=== PATIENT | female | born 1935 | race Caucasian/White ===

== ENCOUNTER 2019-04-20 14:05 | Outpatient (CLI) | payer MEDICARE, MEDICAID, SELFPAY ==
--- NOTE | 2019-04-20 14:15 | USCV_ITS ---
Virginie Dawkins Age: 83 Gender: F : 1935 Exam Date: 04/20/2019 14:42 Ordering Phys: Kiley Chance MD ([email or web address]) Technologist: ALEXANDR PERKINS [place] [facility] [place]: PERICARDIAL EFFUSION BP: / HR: 71 Rhythm: Sinus Technical Quality: Good MEASUREMENTS (Male / Female) Normal Values 2D ECHO LV Diastolic Diameter PLAX 4.3 cm 4.2 - 5.9 / 3.9 - 5.3 cm LV Systolic Diameter PLAX 2.8 cm IVS Diastolic Thickness 0.9 cm 0.6 - 1.0 / 0.6 - 0.9 cm IVS Systolic Thickness 1.5 cm LVPW Diastolic Thickness 0.9 cm 0.6 - 1.0 / 0.6 - 0.9 cm LVPW Systolic Thickness 1.3 cm LV Ejection Fraction 2D Teich 64.9 % LV Ejection Fraction MOD 2C 62.6 % LV Ejection Fraction 2C AL 65.3 % LA Diameter 3.3 cm LA Width 3.7 cm LA Height 6.4 cm RA Width 4.5 cm RA Height 5.1 cm Aorta at Sinotubular Diameter 2.3 cm M-MODE LV Diastolic Diameter MM 4.4 cm 4.2 - 5.9 / 3.9 - 5.3 cm LV Systolic Diameter MM 2.8 cm LV Ejection Fraction MM Teich 65.8 % IVS Diastolic Thickness MM 1.0 cm 0.6 - 1.0 / 0.6 - 0.9 cm IVS Systolic Thickness MM 1.4 cm LVPW Diastolic Thickness MM 1.2 cm 0.6 - 1.0 / 0.6 - 0.9 cm LVPW Systolic Thickness MM 1.6 cm Aortic Annulus Diameter 2.8 cm LA Ao Ratio MM 1.2 MV E Point Septal Separation 0.4 cm FINDINGS Left Ventricle Normal left ventricular size and systolic function, EF 65 %. No regional wall motion abnormalities. Mild left ventricular hypertrophy. Right Ventricle Normal right ventricular size and systolic function. No diastolic collapse. No paradoxical motion of the septum Right Atrium Mildly increased right atrial size. No evidence of any collapse of the atrial wall Left Atrium Mildly increased left atrial size. Mitral Valve No gross abnormalities noted Aortic Valve Thickened aortic valve. Tricuspid Valve No gross abnormalities noted Pulmonic Valve Structurally normal pulmonic valve. Pericardium Moderate pericardial effusion. Aorta Normal aortic annulus size. CONCLUSIONS Features to moderate pericardial effusion with no significant change, compared to the study from 01/20/2019 Normal left ventricular size and systolic function, EF 65 %. No regional wall motion abnormalities. Mild left ventricular hypertrophy. Mild biatrial enlargement Thickened aortic valve. There are no intracardiac masses. Dr Kiley Chance MD FACC (Electronically Signed) Final Date: 23 April 2019 14:40 S
== END 2019-04-20 14:06 | disposition home or self-care (01) ==
LOC: US 14:06
PROVIDERS: Family Provider Family Medicine; PCP Family Medicine; Visit Provider Internal Medicine Cardiovascular Disease
DX: I31.3 Pericardial effusion (noninflammatory) (principal); I35.8 Other nonrheumatic aortic valve disorders
CPT/HCPCS: 93308

== ENCOUNTER → 2020-03-17 09:41 | Outpatient (BNVA) | payer MEDICARE, MEDICAID, SELFPAY | PROVIDERS: Family Provider Family Medicine; PCP Family Medicine; Visit Provider Nurse Practitioner Family | DX: N39.0 Urinary tract infection, site not specified (principal) | CPT/HCPCS: 81003 ==

== ENCOUNTER → 2020-06-16 12:55 | Outpatient (BNVA) | payer MEDICARE, MEDICAID, SELFPAY | PROVIDERS: Family Provider Family Medicine; PCP Nurse Practitioner Family; Visit Provider Nurse Practitioner Family | DX: N39.0 Urinary tract infection, site not specified (principal); R03.0 Elevated blood-pressure reading, without diagnosis of hypertension | CPT/HCPCS: 81003 ==

== ENCOUNTER 2020-06-18 15:43 | Emergency (ER) | payer MEDICARE, MEDICAID, SELFPAY ==
[2020-06-18] VITALS (10 sets, daily range): BP systolic 145–201; BP diastolic 62–97; PULSE 73–94; RESP 18–22; TEMP 36.1; O2SAT 93–96; BMI 23.6
--- NOTE | 2020-06-18 16:20 | XRR_ITS ---
PROCEDURE INFORMATION: Exam: XR Chest Exam date and time: 06/18/2020 4:40 PM Age: 85 years old Clinical indication: Shortness of breath; Additional info: Reduced breath sounds TECHNIQUE: Imaging protocol: XR of the chest. Views: 1 view. COMPARISON: CR Chest 1 [place] [id number] 01/19/2019 7:12 PM FINDINGS: Lungs: Well inflated . No focal consolidation. Trace scarring. Pleural spaces: Unremarkable. No pleural effusion. No pneumothorax. Heart/Mediastinum: The cardiac shadow is moderately enlarged. Aortic calcifications. Similar appearance to the prior exam. Bones/joints: No acute abnormality. XR/XR chest 1V portable [id number] IMPRESSION: No acute findings.
--- NOTE | 2020-06-18 16:20 | CTR_ITS ---
PROCEDURE INFORMATION: Exam: CT Head Without Contrast Exam date and time: 06/18/2020 4:30 PM Age: 85 years old Clinical indication: Altered mental status/memory loss; Additional info: Symptoms of acute stroke TECHNIQUE: Imaging protocol: Computed tomography of the head without contrast. Radiation optimization: All CT scans at this facility use at least one of these dose optimization techniques: automated exposure control; mA and/or kV adjustment per patient size (includes targeted exams where dose is matched to clinical indication); or iterative reconstruction. COMPARISON: No relevant prior studies available. RADIATION DOSE METRICS: Total DLP (mGy-cm): 830.3 FINDINGS: Brain: No evidence of acute infarct. No mass or mass effect. No intra axial hemorrhage. No extra axial fluid collection or hemorrhage. Scattered white matter hypodensities likely from chronic microvascular ischemic disease. Global brain volume loss, likely age related. Cerebral ventricles: Symmetric and without enlargement. Bones/joints: No acute fracture. Paranasal sinuses: Visualized sinuses are well aerated. Mastoid air cells: Visualized mastoid air cells are well aerated. Soft tissues: No concerning abnormalities. CT/CT head wo con* [id number] IMPRESSION: No acute intracranial abnormality. Radiation Dose CTDIVOL = (mGy): DLP = 830.3 (mGy-cm)
--- NOTE | 2020-06-18 16:22 | ECG_ITS ---
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: : 1935 Requested By: Prabhakar Tao Order Number: [id number] Reading MD: ARTEM ESPINOSA Measurements Intervals [place] Rate: 72 P: 68 W[place]: 166 QRS: -16 QRSD: 78 T: -5 QT: 418 QTc: 460 Interpretive Statements SINUS RHYTHM WITH OCCASIONAL VENTRICULAR PREMATURE COMPLEXES Compared to ECG 01/20/2019 03:29:24 ST (T wave) deviation now present Myocardial infarct finding no longer present Electronically Signed On 06-18-2020 20:18:21 CDT by ARTEM ESPINOSA [email or web address] hospitalHandshakeclevel[facility].[employer]/store/[id number]
[2020-06-18 17:06] LABS: Glucose Point of Care 97 mg/dL (70-110)
[2020-06-18 17:16] LABS: Basophils % 0.4 %; Eosinophils % 0.5 %; Hematocrit 46.3 % (37.0-47.0); Hemoglobin 15.3 g/dL (11.5-15.3); Lymphocytes % 38.8 %; Mean Corpuscular Hemoglobin 31.2 pg (28.0-34.0); Mean Corpuscular Volume 94.3 fL (81-99); Mean Platelet Volume 8.8 fL (7.4-10.4); Monocytes # 0.7 10^3/uL (0.2-0.9); Monocytes % 8.7 %; Neutrophils # 3.97 10^3/uL (1.8-7.7); Neutrophils % 51.5 %; Nucleated Red Blood Cells % 0 %; Platelet Count 275 10^3/cmm (130-400); Red Blood Count 4.91 10^6/uL (4.1-5.3); Red Cell Distribution Width 13.4 % (12.1-15.1); White Blood Count 7.7 10^3/uL (4.0-10.0)
[2020-06-18] MEDS: hyDRALAzine 20 mg/mL INJ 1 mL 10 MG IVP ×2 (17:20→21:57)
[2020-06-18 17:31] LABS: INR 1.03 (0.8-1.2)
[2020-06-18 17:31] LABS: Add Urine Microscopic? NO; Charge for UA Resulting for Rev
[2020-06-18 17:32] LABS: Partial Thromboplastin Time 28.6 SECONDS (23.9-36.7)
[2020-06-18 17:38] LABS: Troponin(5th) Baseline 9 ng/L (0-10)
[2020-06-18 17:45] LABS: Alanine Aminotransferase 15 U/L (0-33); Albumin Level 4.4 g/dL (3.5-5.2); Alkaline Phosphatase 75 IU/L (35-105); Anion Gap 12.8 (5-19); Aspartate Amino Transferase 21 U/L (0-32); Blood Urea Nitrogen 14 mg/dL (8-23); Calcium 9.6 mg/dL (8.5-10.5); Carbon Dioxide 31 mmol/L (22-29); Chloride 101 mmol/L (98-107); Globulin 2.7 g/dL (1.3-4.6); Glucose 102 mg/dL (65-115); NT Pro B Type Natriuretic Pept 670 pg/mL (0-450); Osmolality Calculated 293 mOsm/kg (285-295); Potassium 3.8 mmol/L (3.5-5.1); Sodium 141 mmol/L (136-145); Total Bilirubin 0.3 mg/dL (0.15-1.2); Total Protein 7.1 g/dL (6.6-8.7)
[2020-06-18 18:08] LABS: Bilirubin Urine Neg (Negative); Blood Urine Neg (Negative); Glucose Urine UA Norm (Normal); Ketones Urine Negative (Negative); Leukocyte Esterase Urine Negative (Negative); Nitrate Urine Negative (Negative); Protein Urine Neg (Negative); Urine Appearance Clear (CLEAR); Urine Color Yellow (Yellow); Urobilinogen Urine Norm (Negative); pH Urine 5 (5-7)
--- NOTE | 2020-06-18 18:22 | ECG_ITS ---
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: : 1935 Requested By: Prabhakar Tao Order Number: [id number] Girish MD: ARTEM ESPINOSA Measurements Intervals [place] Rate: 73 P: 68 DC: 153 QRS: -17 QRSD: 85 T: 2 QT: 397 QTc: 438 Interpretive Statements SINUS RHYTHM NONSPECIFIC ST & T-WAVE ABNORMALITY Compared to ECG 06/18/2020 16:58:27 T-wave abnormality now present Ventricular premature complex(es) no longer present ST (T wave) deviation no longer present Electronically Signed On 06-18-2020 20:25:23 CDT by ARTEM ESPINOSA [email or web address]/[id number]
[2020-06-18 18:47] LABS: Erythrocyte Sedimentation Rate 11 mm/hr (0-15)
--- NOTE | 2020-06-18 19:40 | PM.HP ---
Providers/Chief Complaint Primary Care Provider: IRLANDA Hamilton Chief Complaint: Hig BP History of Present Illness Virginie Dawkins is a 85 year old female who presented today with chief complaint of dizziness, lethargy, difficult to control blood pressure. Patient is stating that 10 days ago she started noticing left eyelid drooping, she did not pay much attention until her daughter mentioned she did not experience any slurred speech, dysphagia, drooling of saliva, facial asymmetry, motor weakness, falls, palpitations, chest pain, she has been feeling shortness of breath on moderate physical exertion. She also followed up with her manager dental today for macular degeneration. She is denying aspiration, fatigue during chewing on food, tenderness around temporal scalp area, endorsing double vision, diplopia, floaters. No previous history of [place], TIA, stroke. In last 10 days her blood pressure has been consistently between 1 60-1 80s, at baseline her systolic blood pressure would stay 160 mmHg, recently her doctor Dr. Juan started her on amlodipine 5 mg and her first dose was yesterday. Previously she was on Lasix for congestive heart failure but did not take it on regular basis. Her case was discussed with neurologist at [facility] who recommended MRI CT head is unremarkable I did CTA head and neck which showed atherosclerotic plaque bilateral carotid stenosis, she has mild left eyelid droop. Her face skin is flushed. NIH score 0, patient is claustrophobic and does not want to get MRI however because of hypertensive urgency she is currently being observed overnight, she is also endorsing history of irregular heart rhythm never required any anticoagulation current EKG x2 showing sinus rhythm with PVCs, will monitor overnight on telemetry, will add 3 antihypertensives, she is allergic to aspirin would use Plavix. Review of Systems Const: Reports: chills, body aches and fatigue; Denies: fever(s) Eyes: Reports: floaters, seeing flashes and other; Denies: change in vision ENMT: Denies: throat pain Card: Reports: dyspnea on exertion; Denies: chest pain, swelling of feet/ankles or orthopnea Resp: Reports: dyspnea; Denies: productive cough or non-productive cough GI: Denies: abdominal pain : Denies: flank pain Musc: Denies: neck pain Skin/Breast: Reports: other (Facial flushing); Denies: rash Neuro: Denies: headache(s) Psych: Reports: anxiety Endo: Denies: polyuria Darrion/Lymph: Denies: easy bruising All/Imm: Denies: urticaria Medications/Allergies Home Medications Medication Instructions Recorded Confirmed Last Taken Type ascorbic acid (vitamin C) 1,000 mg 1 gm PO BID tab 03/15/19 06/18/20 06/18/20 History tablet cetirizine 10 mg capsule 10 mg PO DAILY cap 03/15/19 06/18/20 06/18/20 History cholecalciferol (vitamin D3) 25 1,000 unit PO DAILY 03/15/19 06/18/20 06/17/20 History mcg (1,000 unit) capsule lactobacillus combination no.9 4 4,000 mmu cells PO DAILY 03/15/19 06/18/20 06/18/20 History billion cell capsule methenamine hippurate 1 gram tablet 1 g PO BID #60 tab 06/16/20 06/18/20 06/18/20 Rx PreserVision AREDS 1 tab PO DAILY 06/18/20 06/18/20 06/18/20 History amlodipine 5 mg PO DAILY 06/18/20 06/18/20 06/18/20 History Allergies Allergy/AdvReac Type Severity Reaction Status Date / Time sulfacetamide Allergy Severe ADR-Chest Verified 06/18/20 16:00 Pain aspirin [From Li PM] Allergy Unknown Unknown Verified 06/18/20 16:00 lisinopril Allergy Unknown Unknown Verified 06/18/20 16:00 metoprolol Allergy Unknown Unknown Verified 06/18/20 16:00 PFSH Acute PFSH: Medical History Acute sinusitis Allergic rhinitis Atypical chest pain The pain is very atypical. Most likely this is musculoskeletal in origin. She has no evidence of ischemia, based on the perfusion scan. Benign essential HTN Bilateral shoulder pain Bronchitis C. difficile colitis COPD (chronic obstructive pulmonary disease) (~04/10/19) Diastolic heart failure Most likely the blood pressure is causing the diastolic heart failure. Currently the blood pressure is a stage II. The antihypertensive medications need to be optimized. Dysuria Essential (primary) hypertension Mediastinal lymphadenopathy Palpitations Pericardial effusion Pharyngitis Rectal prolapse Recurrent UTI Unspecified diastolic (congestive) heart failure Surgical History History of appendectomy History of colon resection Family History Mother , Age 79 Stroke Father , Age 86 Stroke Diabetes Family/Other Cancer Social History Smoking and tobacco status: former smoker Quit status (tobacco): has quit using tobacco Year quit tobacco: 1994 - 2PPD x 40 Years Second hand smoke exposure: No Alcohol intake: never Lives independently: Yes Marital status: Current occupational status: retired History of recent travel: No Current gender identity: Female Vitals/I&O/Wt Last Vital Signs Temp 96.9 F L 06/18/20 15:54 Pulse 73 06/18/20 18:49 Resp 18 06/18/20 18:49 BP 163/79 06/18/20 18:49 Pulse Ox 95 06/18/20 18:49 Weight last 48 hrs Weight 60.328 kg Data : 06/18/20 17:01 06/18/20 17:01 Coding Level of Care Code Acute Merchandise Support Associate for Janki Covington
--- NOTE | 2020-06-18 19:44 | CTR_ITS ---
PROCEDURE INFORMATION: Exam: CT Angiography Head With Contrast Exam date and time: 06/18/2020 7:49 PM Age: 85 years old Clinical indication: Other: Eye lid droop TECHNIQUE: Imaging protocol: Computed tomography angiography of the head with intravenous contrast. 3D rendering (Not supervised by radiologist): MIP and/or 3D reconstructed images were created by the technologist. Radiation optimization: All CT scans at this facility use at least one of these dose optimization techniques: automated exposure control; mA and/or kV adjustment per patient size (includes targeted exams where dose is matched to clinical indication); or iterative reconstruction. Contrast material: OMNI 350; Contrast volume: 95 ml; Contrast route: INTRAVENOUS (IV); COMPARISON: CT head wo con* [id number] 06/18/2020 4:54 PM RADIATION DOSE METRICS: Total DLP (mGy-cm): 1598.58 FINDINGS: ANTERIOR CIRCULATION: Right internal carotid artery: See Left internal carotid artery finding. Right middle cerebral artery: Unremarkable. No occlusion or significant stenosis. No aneurysm. Right anterior cerebral artery: Unremarkable. No occlusion or significant stenosis. No aneurysm. 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 Aneurysm neck about 3.8 mm. Mild atherosclerotic wall plaques in the cavernous segment of the left ICA with mild stenosis less than 50%. [place] moderate linear calcified atherosclerotic plaque volume in the cavernous segment of the right ICA with mild stenosis less than 50%. Left middle cerebral artery: Unremarkable. No occlusion or significant stenosis. No aneurysm. Left anterior cerebral artery: Unremarkable. No occlusion or significant stenosis. No aneurysm. POSTERIOR CIRCULATION: Right vertebral artery: Unremarkable. No occlusion or significant stenosis. No aneurysm. Left vertebral artery: Unremarkable. No occlusion or significant stenosis. No aneurysm. Basilar artery: Unremarkable. No occlusion or significant stenosis. No aneurysm. Right posterior cerebral artery: Unremarkable. No occlusion or significant stenosis. No aneurysm. Left posterior cerebral artery: Unremarkable. No occlusion or significant stenosis. No aneurysm. Brain: No definite mass, mass effect, or midline shift. Cerebral ventricles: No ventriculomegaly. Bones/joints: Unremarkable. No acute fracture. Soft tissues: Unremarkable. 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 PROCEDURE INFORMATION: Exam: CT Angiography Neck With Contrast Exam date and time: 06/18/2020 7:49 PM Age: 85 years old Clinical indication: Other: Eye lid droop TECHNIQUE: Imaging protocol: Computed tomography angiography of the neck with intravenous contrast. 3D rendering (Not supervised by radiologist): MIP and/or 3D reconstructed images were created by the technologist. Radiation optimization: All CT scans at this facility use at least one of these dose optimization techniques: automated exposure control; mA and/or kV adjustment per patient size (includes targeted exams where dose is matched to clinical indication); or iterative reconstruction. Contrast material: OMNI 350; Contrast volume: 95 ml; Contrast route: INTRAVENOUS (IV); COMPARISON: CT head wo con* [id number] 06/18/2020 4:54 PM RADIATION DOSE METRICS: Total DLP (mGy-cm): 1598.58 FINDINGS: Right common carotid artery: No stenosis. No dissection or occlusion. Right internal carotid artery: Small volume calcified and noncalcified atherosclerotic plaque proximal right ICA with minimal stenosis significantly less than 50%. Right external carotid artery: No occlusion or stenosis of the origin. Right vertebral artery: No stenosis. No dissection or occlusion. Left common carotid artery: No stenosis. No dissection or occlusion. Left internal carotid artery: Moderate atherosclerotic plaque volume proximal left ICA with mild stenosis less than 50%. Left external carotid artery: No occlusion or stenosis of the origin. Left vertebral artery: No stenosis. No dissection or occlusion. Bones/joints: No cervical spine fractures. Reversal of curvature. Severe disc disease C5-C6 and C6-C7. Soft tissues: Normal. No significant soft tissue swelling. Lungs: Severe emphysema. CT/CT angio headneck* [id number] IMPRESSION: Less than 50% stenosis bilateral carotid arteries. REFERENCES: NASCET CRITERIA. The degree of internal carotid artery stenosis is based on NASCET criteria. Normal is no stenosis. Mild is less than 50% stenosis. Moderate is 50-69% stenosis. Severe is 70% to 99% stenosis. Total occlusion is no detectable patent lumen. Radiation Dose CTDIVOL = (mGy): DLP = 1598.58~1598.58 (mGy-cm)
[2020-06-18 19:55] LABS: Troponin 5 2HR 9.32 ng/L (0-10); Troponin 5 2HR Delta 0.32 ABS# (0-10)
--- NOTE | 2020-06-18 20:02 | ED_ITS ---
HPI - General Adult General: Chief complaint: General Medical Stated complaint: Hig BP Time Seen by Provider: 06/18/20 16:01 History of Present Illness: HPI narrative: The patient is an 85-year-old female who comes to the ER after she was told to for elevated systolic blood pressure of 200. She visited her primary approximately 4 days ago and was started on amlodipine for a similar pressure. On arrival to the ER she has a systolic of 200 as well and a left eye ptosis. She says 10 days ago she woke up and noticed her left eye was drooping, began to have double vision, feels generally weak, and slightly short of breath. She has never had symptoms like these before until 10 days ago. Her blood pressure she says is up-and-down and it has been elevated in the past requiring medications and sometimes it is low however presently it is elevated. She also says she has white coat syndrome and gets very elevated blood pressure because she is anxious and afraid of healthcare people Location: face Severity: moderate Associated symptoms: Reports short of breath; Deny chest pain, confusion, dyspnea, headache(s), rash or palpitations Review of Systems General: Reports: 10 or more systems reviewed and unremarkable except in HPI and below Const: Denies: fatigue Eyes: Denies: change in vision, blurry vision or eye redness ENMT: Denies: throat pain, swelling of lips/tongue, ear or mastoid pain or nasal congestion Card: Denies: chest pain, palpitations, irregular heart rhythm, edema, dyspnea on exertion or orthopnea Resp: Denies: dyspnea, productive cough or non-productive cough GI: Denies: abdominal pain, diarrhea or GI cramping : Denies: flank pain, difficulty voiding, urinary frequency or urinary urgency Musc: Denies: neck pain, back pain, extremity pain, joint pain, joint redness, limited range of motion or muscle weakness Skin/Breast: Denies: rash, pruritus, erythema, skin pain or skin tenderness Neuro: Denies: headache(s), numbness in extremities, weakness in extremities, sensory changes, difficulty walking, dizziness, confusion or Slurred speech present Psych: Denies: anxiety or depression Endo: Denies: polyuria All/Imm: Denies: urticaria, throat swelling or tongue swelling PFS ED PFSH: Medical History (Updated 06/18/20 @ 20:12 by Prabhakar Tao MD) Acute sinusitis Allergic rhinitis Atypical chest pain The pain is very atypical. Most likely this is musculoskeletal in origin. She has no evidence of ischemia, based on the perfusion scan. Benign essential HTN Bilateral shoulder pain Bronchitis C. difficile colitis COPD (chronic obstructive pulmonary disease) (~04/10/19) Diastolic heart failure Most likely the blood pressure is causing the diastolic heart failure. Currently the blood pressure is a stage II. The antihypertensive medications need to be optimized. Dysuria Essential (primary) hypertension Mediastinal lymphadenopathy Palpitations Pericardial effusion Pharyngitis Rectal prolapse Recurrent UTI Unspecified diastolic (congestive) heart failure Surgical History History of appendectomy History of colon resection Family History Mother , Age 79 Stroke Father , Age 86 Stroke Diabetes Family/Other Cancer Social History Smoking and tobacco status: former smoker Quit status (tobacco): has quit using tobacco Year quit tobacco: 1994 - PD x 40 Years Second hand smoke exposure: No Alcohol intake: never Lives independently: Yes Marital status: Current occupational status: retired History of recent travel: No Current gender identity: Female Physical Exam Const: COMMON NORMALS: no acute distress, average body habitus, patient oriented x3, no limitations, healthy appearing, alert and well nourished GENERAL APPEARANCE: cooperative, comfortable, well kempt and well developed ORIENTATION/CONSCIOUSNESS: Yes awake, Yes oriented to person, Yes oriented to place and Yes oriented to time HENMT: COMMON NORMALS: normocephalic, external ears normal and Normal external nose present HEAD & SCALP: normal to inspection and normocephalic NOSE: Normal external nose present EXTERNAL EAR: Yes external ears normal MOUTH: Normal oral and palatal mucosa present THROAT: posterior oropharynx normal Eye: COMMON NORMALS: Equal, round and reactive pupils present and EOMs intact bilaterally GENERAL EYE: appearance normal, both eyes and all related structures PUPIL: Yes Equal, round and reactive pupils present OTHER: She has a slight ptosis on the left eye. Full strength of all her muscles she is able to close both eyes. The patient is able to track my finger with during the H test. She does have horizontal nystagmus with lateral gaze bilaterally. Her visual acuity is normal she is able to read fine print however she does complain of double vision at times. Neck/C-Spine: COMMON NORMALS: full ROM, no lymphadenopathy, no meningeal signs and no JVD GENERAL: Yes normal visual inspection Lymph: LYMPHATIC: no lymphadenopathy noted Chest: COMMONS NORMALS: normal inspection of the chest and normal palpation of entire chest wall Resp: COMMON NORMALS: normal respiratory effort, No retractions, No use of accessory muscles, clear to auscultation bilaterally and percussion normal EFFORT & INSPECTION: Yes able to speak in complete sentences AUSCULTATION: clear to auscultation bilaterally PERCUSSION: percussion normal Cardio: COMMON NORMALS: no JVD, regular rate, S1 normal heart sound present, S2 normal heart sound present and Peripheral pulses 2+ throughout RATE: regular rate RHYTHM: abnormal rhythm and other (She has some PVCs in her strip. She says this is normal for her.) HEART SOUNDS: S1 normal heart sound present and S2 normal heart sound present PERIPHERAL PULSES: Peripheral pulses 2+ throughout GI: COMMON NORMALS: Normal to inspection, nondistended, normoactive bowel sounds present, Soft to palpation, non-tender and no masses INSPECTION: Yes normal to inspection PALPATION: Yes Soft to palpation : COMMON NORMALS: Yes no CVA tenderness BLADDER/KIDNEY EXAM: Yes no CVA tenderness Back/Pelvis: COMMON NORMALS: no CVA tenderness, thoracic and lumbar spine normal to inspection, no thoracic nor lumbar tenderness and thoraco-lumbar ROM normal Extremity: COMMON NORMALS: normal to inspection, full ROM, capillary refill normal, no joint enlargement and no pedal edema GENERAL: Yes normal exam except as noted Neuro: COMMON NORMALS: patient oriented x3, CN's II-XII intact bilaterally, moves all extremities, no focal motor deficits, no sensory deficits noted and gait normal SENSORIUM/ORIENTATION: Yes alert, Yes oriented to person, Yes oriented to place and Yes oriented to time MENINGEAL SIGNS: Yes no meningeal signs Psych: COMMON NORMALS: mental status grossly normal, Normal thought process present, cooperative, normal affect and speech normal APPEARANCE: Yes well kempt ATTITUDE: Yes calm SPEECH: Yes normal speech THOUGHT PROCESS: Normal thought process present Skin: COMMON NORMALS: no rashes or lesions noted GENERAL SKIN EXAM: no rashes or lesions noted Course Vital Signs: Vital signs: Vital Signs Temperature 96.9 F L 06/18/20 15:54 Pulse Rate 73 06/18/20 18:49 Respiratory Rate 18 06/18/20 18:49 Blood Pressure 163/79 06/18/20 18:49 Pulse Oximetry 95 06/18/20 18:49 MDM - General Adult MDM Narrative: Medical decision making narrative: The patient came to the ER for hypertension. She was given 10 mg of hydralazine with good improvement of her systolic blood pressure down to the 160s. She also has white coat syndrome. Separately it seems she has been suffering from some neurologic condition which is unclear. She has a left eye ptosis for the past 10 days and has had some shortness of breath, generalized weakness, and double vision. The symptoms are unclear and I discussed with [facility] neurology who recommended admitting for an MRI of the brain. The patient has been stable in the ER. Discussed with Dr. Carranza who accepts for observation. Lab Data: Labs: Lab Results 06/18/20 06/18/20 06/18/20 Range/Units 17:00 17:01 17:01 WBC 7.7 (4.0-10.0) 10^3/ uL RBC 4.91 (4.1-5.3) 10^6/u L Hgb 15.3 (11.5-15.3) g/dL Hct 46.3 (37.0-47.0) % MCV 94.3 (81-99) fL MCH 31.2 (28.0-34.0) pg MCHC 33.0 (30.0-36.0) g/dL RDW 13.4 (12.1-15.1) % Plt Count 275 (130-400) 10^3/c mm MPV 8.8 (7.4-10.4) fL Neut % (Auto) 51.5 % Lymph % (Auto) 38.8 % [place] % (Auto) 8.7 % Eos % (Auto) 0.5 % Baso % (Auto) 0.4 % Neut # (Auto) 3.97 (1.8-7.7) 10^3/u L Lymph # (Auto) 3.0 (0.8-4.8) 10^3/u L [place] # (Auto) 0.7 (0.2-0.9) 10^3/u L Eos # (Auto) 0.0 (0.0-0.8) 10^3/u L Baso # (Auto) 0.0 (0.0-0.1) 10^3/u L Nucleated RBC % (a uto) 0 % Nucleated RBCs # 0.0 /100WBC ESR (0-15) mm/hr PT 13.80 (12.1-14.9) SECO NDS INR 1.03 (0.8-1.2) APTT 28.6 (23.9-36.7) SECO NDS Sodium (136-145) mmol/L Potassium (3.5-5.1) mmol/L Chloride (98-107) mmol/L Carbon Dioxide (22-29) mmol/L Anion Gap (5-19) BUN (8-23) mg/dL Creatinine (0.5-0.9) mg/dL GFR Calculation Glucose (65-115) mg/dL POC Glucose 97 (70-110) mg/dL Calculated Osmolal ity (285-295) mOsm/k g Calcium (8.5-10.5) mg/dL Total Bilirubin (0.15-1.2) mg/dL AST (0-32) U/L ALT (0-33) U/L Alkaline Phosphata se (35-105) IU/L Troponin T Baselin e (0-10) ng/L Troponin T 120 Min [place] (0-10) ng/L Delta Troponin T (0-10) ABS# NT-Pro-B Natriuret Pep (0-450) pg/mL Total Protein (6.6-8.7) g/dL Albumin (3.5-5.2) g/dL Globulin (1.3-4.6) g/dL Urine Color (Yellow) Urine Appearance (CLEAR) Urine pH (5-7) Ur Specific Gravit y (1.005-1.030) Urine Protein (Negative) Urine Glucose (UA) (Normal) Urine Ketones (Negative) Urine Blood (Negative) Urine Nitrate (Negative) Urine Bilirubin (Negative) Urine Urobilinogen (Negative) mg/dL Ur Leukocyte Trisha ase (Negative) 06/18/20 06/18/20 06/18/20 Range/Units 17:01 17:01 17:01 WBC (4.0-10.0) 10^3/ uL RBC (4.1-5.3) 10^6/u L Hgb (11.5-15.3) g/dL Hct (37.0-47.0) % MCV (81-99) fL MCH (28.0-34.0) pg MCHC (30.0-36.0) g/dL RDW (12.1-15.1) % Plt Count (130-400) 10^3/c mm MPV (7.4-10.4) fL Neut % (Auto) % Lymph % (Auto) % [place] % (Auto) % Eos % (Auto) % Baso % (Auto) % Neut # (Auto) (1.8-7.7) 10^3/u L Lymph # (Auto) (0.8-4.8) 10^3/u L [place] # (Auto) (0.2-0.9) 10^3/u L Eos # (Auto) (0.0-0.8) 10^3/u L Baso # (Auto) (0.0-0.1) 10^3/u L Nucleated RBC % (a uto) % Nucleated RBCs # /100WBC ESR 11 (0-15) mm/hr PT (12.1-14.9) SECO NDS INR (0.8-1.2) APTT (23.9-36.7) SECO NDS Sodium 141 (136-145) mmol/L Potassium 3.8 (3.5-5.1) mmol/L Chloride 101 (98-107) mmol/L Carbon Dioxide 31 H (22-29) mmol/L Anion Gap 12.8 (5-19) BUN 14 (8-23) mg/dL Creatinine 0.4 L (0.5-0.9) mg/dL GFR Calculation Not Reportable Glucose 102 (65-115) mg/dL POC Glucose (70-110) mg/dL Calculated Osmolal ity 293 (285-295) mOsm/k g Calcium 9.6 (8.5-10.5) mg/dL Total Bilirubin 0.3 (0.15-1.2) mg/dL AST 21 (0-32) U/L ALT 15 (0-33) U/L Alkaline Phosphata se 75 (35-105) IU/L Troponin T Baselin e 9 (0-10) ng/L Troponin T 120 Min [place] (0-10) ng/L Delta Troponin T (0-10) ABS# NT-Pro-B Natriuret Pep 670 H (0-450) pg/mL Total Protein 7.1 (6.6-8.7) g/dL Albumin 4.4 (3.5-5.2) g/dL Globulin 2.7 (1.3-4.6) g/dL Urine Color (Yellow) Urine Appearance (CLEAR) Urine pH (5-7) Ur Specific Gravit y (1.005-1.030) Urine Protein (Negative) Urine Glucose (UA) (Normal) Urine Ketones (Negative) Urine Blood (Negative) Urine Nitrate (Negative) Urine Bilirubin (Negative) Urine Urobilinogen (Negative) mg/dL Ur Leukocyte Trisha ase (Negative) 06/18/20 06/18/20 Range/Units 17:21 19:03 WBC (4.0-10.0) 10^3/ uL RBC (4.1-5.3) 10^6/u L Hgb (11.5-15.3) g/dL Hct (37.0-47.0) % MCV (81-99) fL MCH (28.0-34.0) pg MCHC (30.0-36.0) g/dL RDW (12.1-15.1) % Plt Count (130-400) 10^3/c mm MPV (7.4-10.4) fL Neut % (Auto) % Lymph % (Auto) % [place] % (Auto) % Eos % (Auto) % Baso % (Auto) % Neut # (Auto) (1.8-7.7) 10^3/u L Lymph # (Auto) (0.8-4.8) 10^3/u L [place] # (Auto) (0.2-0.9) 10^3/u L Eos # (Auto) (0.0-0.8) 10^3/u L Baso # (Auto) (0.0-0.1) 10^3/u L Nucleated RBC % (a uto) % Nucleated RBCs # /100WBC ESR (0-15) mm/hr PT (12.1-14.9) SECO NDS INR (0.8-1.2) APTT (23.9-36.7) SECO NDS Sodium (136-145) mmol/L Potassium (3.5-5.1) mmol/L Chloride (98-107) mmol/L Carbon Dioxide (22-29) mmol/L Anion Gap (5-19) BUN (8-23) mg/dL Creatinine (0.5-0.9) mg/dL GFR Calculation Glucose (65-115) mg/dL POC Glucose (70-110) mg/dL Calculated Osmolal ity (285-295) mOsm/k g Calcium (8.5-10.5) mg/dL Total Bilirubin (0.15-1.2) mg/dL AST (0-32) U/L ALT (0-33) U/L Alkaline Phosphata se (35-105) IU/L Troponin T Baselin e (0-10) ng/L Troponin T [address] [place] 9.32 (0-10) ng/L Delta Troponin T 0.32 (0-10) ABS# NT-Pro-B Natriuret Pep (0-450) pg/mL Total Protein (6.6-8.7) g/dL Albumin (3.5-5.2) g/dL Globulin (1.3-4.6) g/dL Urine Color Yellow (Yellow) Urine Appearance Clear (CLEAR) Urine pH 5 (5-7) Ur Specific Gravit y 1.020 (1.005-1.030) Urine Protein Neg (Negative) Urine Glucose (UA) Norm (Normal) Urine Ketones Negative (Negative) Urine Blood Neg (Negative) Urine Nitrate Negative (Negative) Urine Bilirubin Neg (Negative) Urine Urobilinogen Norm (Negative) mg/dL Ur Leukocyte Trisha ase Negative (Negative) Discharge Plan Discharge Patient Disposition: Placed in Observation Clinical Impression: Benign essential HTN, Neurological symptoms Coding Level of Care Code ED 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
[2020-06-18] MEDS: iohexol 350 mg/mL 100 mL Btl IV (20:04)
== END 2020-06-18 22:27 ==
PROVIDERS: Emergency Provider Family Medicine; PCP Nurse Practitioner Family
DX: I11.0 Hypertensive heart disease with heart failure (principal); I50.30 Unspecified diastolic (congestive) heart failure; R29.90 Unspecified symptoms and signs involving the nervous system; J44.9 Chronic obstructive pulmonary disease, unspecified; Z87.891 Personal history of nicotine dependence
CPT/HCPCS: 36416; 70450; 70496; 70498; 71045; 80053; 81003; 82962; 83880; 84484; 85025; 85610; 85651; 85730; 93005; 96374; 96376; 99285; J0360; Q9967

== ENCOUNTER → 2020-12-16 16:14 | Outpatient (BNVA) | payer MEDICARE, MEDICAID, SELFPAY | PROVIDERS: PCP Nurse Practitioner Family; Visit Provider Urology | DX: N39.0 Urinary tract infection, site not specified (principal) | CPT/HCPCS: 81003; 87086 ==

== ENCOUNTER 2023-10-18 11:22 | Emergency (ER) | payer MEDICARE, MEDICAID, SELFPAY ==
[2023-10-18 11:33] VITALS: BP 164/77; PULSE 69; RESP 20; TEMP 36.8; O2SAT 91
--- NOTE | 2023-10-18 11:40 | CT_ITS ---
WS: [id number] CT CERVICAL SPINE HISTORY: fall/trauma TECHNIQUE: Contiguous 2.0 mm axial imaging performed through the entire cervical spine. Sagittal and coronal reformats also performed. All CT scans at [facility] use at least one of these dose o ptimization techniques: automated exposure control; mA and/or kV adjustment per patient size (include s targeted exams where dose is matched to clinical indication); or iterative reconstruction. DLP: 1413.78 mGy.cm COMPARISON: None available. C5 retrolisthesis by less than 2 mm. Moderate degenerative disc disease at C5-6. Mild osteopenia. No cervical spine fracture. Facet joints are normally aligned with no asymmetry. No fractures or disloca tion. Lateral masses of C1 and C2 are aligned. The odontoid is intact. Bilateral facet joint arthropa thy. Facet joint arthritis throughout the cervical spine but most significant at the C5-6 resulting i n mild bilateral foraminal and mild central stenosis. Lung apices are clear. Mild calcified plaque burden at the carotid bifurcations. CT/CT cervical spin wo con* [id number] IMPRESSION: 1. No acute cervical spine fracture. 2. Facet joint arthritis and degenerative disc disease, most significant at C5 -6. 3. Normal facet joint alignment.
--- NOTE | 2023-10-18 11:41 | CT_ITS ---
WS: [id number] CT HEAD NONCONTRAST HISTORY: trauma/fall TECHNIQUE: Contiguous axial imaging performed through the brain in 3.0 mm imaging. Bone and soft tiss ue windows. Sagittal and coronal reformats reviewed. All CT scans at [facility] use at least one of these dose optimization techniques: automated exposure control; mA and/or kV adjustment per pa tient size (includes targeted exams where dose is matched to clinical indication); or iterative recon struction. DLP: 1413.78 mGy.cm COMPARISON: 06/18/2020 No acute intracranial hemorrhage, midline shift or mass effect. Increased density along the LEFT tentorium is calcification. Very similar to the study of 06/18/2020. N o acute blood products identified. There is extensive decreased attenuation throughout the supratento rial white matter from advanced small vessel ischemic disease. No large territory infarct. Ventricles: Ventricles and extra-axial spaces are prominent on the basis of atrophy. No inferior displacement of the cerebellar tonsils. Paranasal sinuses: As visualized are clear. Mastoid air cells: Well pneumatized. Calvarium and scalp: No skull fracture. There is a large acute dense scalp hematoma centered towards the posterior RIGHT parietal vertex. No underlying fracture. CT/CT head wo con* [id number] IMPRESSION: 1. No acute intracranial hemorrhage or edema. 2. Cerebral atrophy with advanced small vessel ischemic disease. 3. Large acute high RIGHT parietal scalp hematoma.
--- NOTE | 2023-10-18 12:30 | ED_ITS ---
HPI - Head Injury General: Chief complaint: Head Injury Stated complaint: Fell hit head last night Time Seen by Provider: 10/18/23 11:58 Source: patient Mode of arrival: ambulatory Limitations: no limitations History of Present Illness: 88-year-old female states that she had f ell backwards yesterday after she was trying to evade a wasp states she did hit the back of her head on concrete. States this happened yesterday evening at 6 PM with a small wound to top of her head states she had a headache along with some neck pain she denies any loss conscious denies any pain elsewhere at this time. Associated symptoms: Reports neck pain; Deny nausea or vomiting Review of Systems Const: Denies: fever(s), chills, body aches or change in appetite Eyes: Denies: blurry vision or eye discomfort ENMT: Denies: throat pain or dental pain Card: Denies: chest pain Resp: Denies: dyspnea GI: Denies: abdominal pain, nausea, vomiting or diarrhea Musc: Reports: neck pain; Denies: back pain Skin/Breast: Denies: rash Neuro: Reports: headache(s) PFSH ED PFSH: Medical History (Updated 10/18/23 @ 13:35 by True Galaviz MD) Recurrent UTI Benign essential HTN Diastolic heart failure Most likely the blood pressure is causing the diastolic heart failure. Currently the blood pressure is a stage II. The antihypertensive medications need to be optimized. Palpitations Atypical chest pain The pain is very atypical. Most likely this is musculoskeletal in origin. She has no evidence of ischemia, based on the perfusion scan. Bronchitis Pharyngitis Acute sinusitis Allergic rhinitis Dysuria C. difficile colitis Essential (primary) hypertension Pericardial effusion Rectal prolapse Bilateral shoulder pain Mediastinal lymphadenopathy COPD (chronic obstructive pulmonary disease) (~04/10/19) Unspecified diastolic (congestive) heart failure Surgical History History of colon resection History of appendectomy Family History Mother , Age 79 Stroke Father , Age 86 Stroke Diabetes Family/Other Cancer Social History Smoking and tobacco/nicotine status: former use of tobacco/nicotine Quit status (tobacco/nicotine): has quit using Year quit tobacco: 1994 - PD x 40 Years Second hand smoke exposure: No Alcohol intake: never Substance/Drug Use: never Lives independently: Yes Marital status: Current occupational status: retired Do you think of yourself as: Straight/Heterosexual Current gender identity: Female Physical Exam Const: COMMON NORMALS: no acute distress, patient oriented x3 and healthy appearing HENMT: COMMON NORMALS: normocephalic HEAD & SCALP: normocephalic OTHER: Abrasion noted to posterior scalp scabbed over with no bleeding at this time Eye: COMMON NORMALS: Equal, round and reactive pupils present and EOMs intact bilaterally PUPIL: Yes Equal, round and reactive pupils present Neck/C-Spine: COMMON NORMALS: full ROM and supple OTHER: Paraspinal tenderness along with some tenderness along her neck no obvious abnormalities Chest: COMMONS NORMALS: normal inspection of the chest Resp: COMMON NORMALS: normal respiratory effort, No retractions, No use of accessory muscles and clear to auscultation bilaterally AUSCULTATION: clear to auscultation bilaterally Cardio: COMMON NORMALS: regular rate, regular rhythm and No murmurs present (Cardio) RATE: regular rate RHYTHM: regular rhythm Extremity: COMMON NORMALS: normal to inspection and full ROM Neuro: COMMON NORMALS: patient oriented x3, moves all extremities and no focal motor deficits Psych: COMMON NORMALS: mental status grossly normal, Normal thought process present and cooperative THOUGHT PROCESS: Normal thought process present Skin: COMMON NORMALS: no rashes or lesions noted and no wounds GENERAL SKIN EXAM: no rashes or lesions noted Course Vital Signs: Vital signs: Vital Signs Temperature 98.3 F 10/18/23 11:33 Pulse Rate 69 10/18/23 11:33 Respiratory Rate 20 H 10/18/23 11:33 Blood Pressure 164/77 10/18/23 11:33 Pulse Oximetry 91 10/18/23 11:33 MDM - Head Injury Medcial Decision Making Patient presents here after a fall she does have a hematoma no signs of any large lacerations imaging here is normal she no other injuries from her fall she stable for discharge follow-up PCP return if worsening. Medical Records I reviewed the patient's medical records. Lab Data Radiology Impressions Cervical Spine CT 10/18/23 11:40 IMPRESSION: 1. No acute cervical spine fracture. 2. Facet joint arthritis and degenerative disc disease, most significant at C5- 6. 3. Normal facet joint alignment. Head CT 10/18/23 11:41 IMPRESSION: 1. No acute intracranial hemorrhage or edema. 2. Cerebral atrophy with advanced small vessel ischemic disease. 3. Large acute high RIGHT parietal scalp hematoma. All radiology interpretation(s) finalized by discharge Discharge Plan Discharge Patient Disposition: Home Clinical Impression: Closed head injury, Fall Condition: Stable Prescriptions: No Action cholecalciferol (vitamin D3) 1,000 unit capsule 1,000 unit PO DAILY ascorbic acid (vitamin C) 1,000 mg tablet 1 gm PO BID vitamin E (dl, acetate) 180 mg (400 unit) capsule 180 mg PO DAILY Azo Cranberry 250 mg tablet,chewable 250 mg PO DAILY PRN (Reason: bladder health) PreserVision AREDS 1 tab PO DAILY amlodipine 5 mg tablet 5 mg PO BID carvedilol 3.125 mg tablet 3.125 mg PO BID levocetirizine 5 mg tablet 5 mg PO QPM Discharge Orders: Discharge ED (Routine); Ordered 10/18/23 Ordered By: True Galaviz Referrals: Suzi Garcia NP [Primary Care Provider] - 1-3 days Discharge Diet: Advance as tolerated Discharge Activity: Resume usual activity Patient Instructions: Head Injury (ED) Coding Level of Care Code ED 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
[2023-10-18 14:09] VITALS: BP 174/77; O2SAT 90
== END 2023-10-18 14:16 | disposition home or self-care (01) ==
PROVIDERS: Emergency Provider Emergency Medicine; PCP Nurse Practitioner Family
DX: S00.01XA Abrasion of scalp, initial encounter (principal); Z87.891 Personal history of nicotine dependence; I11.0 Hypertensive heart disease with heart failure; I50.9 Heart failure, unspecified; J44.9 Chronic obstructive pulmonary disease, unspecified; W19.XXXA Unspecified fall, initial encounter
CPT/HCPCS: 70450; 72125; 99284